=== PATIENT | female | born 1970 | race Two or more races ===

== ENCOUNTER 2018-05-16 12:08 | Emergency (ER) | payer OTHER ==
[~2018-05-16] VITALS: Ht 162.6 cm; Wt 79.8 kg
[~2018-05-16 12:08] MED LIST: ULTRACET PO
[2018-05-17] MEDS ORDERED: CIPRO500 MG PO (02:47)
[2018-05-17] MEDS ORDERED: URIN D.S. TABL1 EACH PO (02:47)
[2018-05-17] MEDS ORDERED: CELECOXIB200 MG PO (02:47)
== END 2018-05-17 02:57 | disposition home or self-care (01) ==
LOC: ER 12:08
DX: N39.0 Urinary tract infection, site not specified (principal); R10.31 Right lower quadrant pain

== ENCOUNTER 2021-08-24 07:08 | Outpatient (CLI) | payer OTHER ==
[~2021-08-24 07:08] MED LIST changes: +CELECOXIB200 MG PO; +CIPRO500 MG PO; +URIN D.S. TABL1 EACH PO
== END 2021-08-24 07:28 | disposition home or self-care (01) ==
LOC: MAMO-SONO 07:08
PROVIDERS: ATTEND Specialist
DX: Z12.31 Encounter for screening mammogram for malignant neoplasm of breast (principal); N63.0 Unspecified lump in unspecified breast

== ENCOUNTER 2022-12-09 09:39 | Emergency (ER) | payer OTHER ==
[~2022-12-09] VITALS: Ht 162.6 cm; Wt 88.0 kg
== END 2022-12-09 14:40 | disposition home or self-care (01) ==
LOC: ER 09:39
DX: R10.9 Unspecified abdominal pain (principal); M94.0 Chondrocostal junction syndrome [Tietze]; R07.9 Chest pain, unspecified; K57.30 Diverticulosis of large intestine without perforation or abscess without bleeding